=== PATIENT | male | born 1950 | race Caucasian/White ===

== ENCOUNTER 2017-09-29 22:31 | Emergency (ER) | payer OTHER ==
[~2017-09-29] VITALS: Ht 177.8 cm; Wt 91.8 kg
[2017-09-29] MEDS ORDERED: ALBU2TA PO (23:03)
[2017-09-29] MEDS ORDERED: MOTR200T44 PO (23:04)
[2017-09-29] MEDS ORDERED: INSULANT SC (23:06)
[2017-09-29] MEDS ORDERED: LISI-542 PO (23:08)
[2017-09-29] MEDS ORDERED: PRIL20CA9 PO (23:08)
[2017-09-29] MEDS ORDERED: ASPI81TA85 PO (23:08)
[2017-09-29] MEDS ORDERED: ZETI10TA30 PO (23:08)
[2017-09-29] MEDS ORDERED: IBUPROFEN 600 MG TAB PO ONE (23:45)
[2017-09-29 23:59] VITALS: BP 139/65
--- NOTE | 2017-09-30 08:02 | REP ---
Clinical: Trauma. Technique: Internal rotation, external rotation, and Y view of the left shoulder. Findings: Moderate osteoarthritic degenerative changes are appreciated including osteophytosis along the acromioclavicular joint and inferior margin of the glenohumeral joint, cortical irregularities, joint space narrowing and blunting of the glenoid rim. Small loose bodies inferior to the acromioclavicular joint cannot be excluded. No acute fracture or dislocation. Impression: No acute fracture dislocation. Moderate osteoarthritic degenerative changes. Signed by Donnell Guerra MD 09/30/2017 07:53 A
== END 2017-09-30 00:05 | disposition home or self-care (01) ==
LOC: M ED 22:31
DX: S40.012A Contusion of left shoulder, initial encounter (principal); V78.4XXA Person boarding or alighting from bus injured in noncollision transport accident, initial encounter; Y92.89 Other specified places as the place of occurrence of the external cause; I10 Essential (primary) hypertension; E11.9 Type 2 diabetes mellitus without complications; Z87.891 Personal history of nicotine dependence; Z79.899 Other long term (current) drug therapy; Z79.4 Long term (current) use of insulin; Z79.84 Long term (current) use of oral hypoglycemic drugs